=== PATIENT | female | born 1940 | race Caucasian/White ===

== ENCOUNTER 2021-03-05 08:23 | Observation (INO) | payer BC ==
[2021-03-05 08:41] VITALS: BMI 28.3
[2021-03-05] MEDS ORDERED: ACETAMINOPHEN 500 MG TABLET (FP) PO ONE (09:30)
[2021-03-05] MEDS ORDERED: ACETAMINOPHEN 325 MG TABLET (FP) ONE (09:53)
[2021-03-05 10:26] LABS: BASO % 1.9 % (0-2.0); EOS % 0.9 % (0-4.5); HEMOGLOBIN 13.1 GM/dL (10.7-15.3); LYMPH % 13.5 % (8-40); MCH 32.2 pg (25.7-33.7); MCHC 35.5 g/dl (32.0-36.0); MEAN CELL VOLUME 90.7 fl (80-96); MONO % 6.3 % (3.8-10.2); NEUT % 77.4 % (42.8-82.8); PLATELET COUNT 188 10^3/uL (134-434); RBC 4.07 M/mm3 (3.60-5.2); RDW 12.9 % (11.6-15.6); WHITE BLOOD COUNT 6.1 K/mm3 (4.0-10.0)
[2021-03-05 10:45] LABS: CHLORIDE 103 mmol/L (98-107); SODIUM 142 mmol/L (136-145)
[2021-03-05 10:48] LABS: ALBUMIN 4.3 g/dl (3.4-5.0); ANION GAP 6 MMOL/L (8-16); BLOOD UREA NITROGEN 18.8 mg/dL (7-18); CALCIUM 9.4 mg/dL (8.5-10.1); CO2 32 mmol/L (21-32); GLUCOSE,RANDOM 103 mg/dL (74-106); MAGNESIUM 2.3 mg/dL (1.8-2.4)
[2021-03-05 10:50] LABS: PHOSPHOROUS 3.1 mg/dL (2.5-4.9); SGOT/AST 19 U/L (15-37); SGPT/ALT 25 U/L (13-61)
[2021-03-05 10:52] LABS: CREATININE 0.9 mg/dL (0.55-1.3)
[2021-03-05 10:53] LABS: BILIRUBIN,TOTAL 0.9 mg/dL (0.2-1); TOT PROT 7.1 g/dl (6.4-8.2)
[2021-03-05 10:54] LABS: ALK PHOS 87 U/L (45-117)
[2021-03-05 13:47] LABS: EPI CELLS 26 /uL (0-25.1); HYALINE CASTS 5 /uL (0-3.1); PH,URINE 6.5 (5.0-8.0); URINE APPEARANCE CLEAR; URINE BACTERIA 72 /uL (0-1359); URINE BILIRUBIN NEGATIVE (NEGATIVE); URINE COLOR YELLOW; URINE GLUCOSE (UA) NEGATIVE (NEGATIVE); URINE KETONE NEGATIVE (NEGATIVE); URINE LEUK ESTERASE 1+ (NEGATIVE); URINE NITRITE NEGATIVE (NEGATIVE); URINE PROTEIN NEGATIVE (NEGATIVE); URINE RBC 15 /uL (0-23.9); URINE WBC 26 /uL (0-25.8)
[2021-03-06 08:36] LABS: CALCIUM 8.6 mg/dL (8.5-10.1)
[2021-03-06 08:37] LABS: BLOOD UREA NITROGEN 24.9 mg/dL (7-18)
[2021-03-06 08:39] LABS: CREATININE 0.9 mg/dL (0.55-1.3)
[2021-03-06] MEDS: VALSARTAN 80 MG TABLET PO SCH (09:12)
[2021-03-06] MEDS: HYDROCHLOROTHIAZIDE 12.5 MG CAPSULE (FP) PO SCH (09:12)
[2021-03-06] MEDS: SERTRALINE HCL 50 MG TABLET (FP) PO SCH (09:12)
[2021-03-06] MEDS ORDERED: PATIENT'S OWN MEDICATION (NON-FORMULARY) (Valsartan/Hydrochlorothiazide 1 TAB Tablet) PO SCH (10:00)
[2021-03-06] MEDS: HEPARIN NA (PORCINE) 5,000 UNITS/ML 1ML VIAL SQ SCH (23:27)
[2021-03-07] MEDS ORDERED: LEVOTHYROXINE NA 50 MCG TABLET (FP) PO SCH (07:00)
[2021-03-07] MEDS: HYDROCHLOROTHIAZIDE 12.5 MG CAPSULE (FP) PO SCH (09:33)
[2021-03-07] MEDS: HEPARIN NA (PORCINE) 5,000 UNITS/ML 1ML VIAL SQ SCH (09:33)
[2021-03-07] MEDS: VALSARTAN 80 MG TABLET PO SCH (09:33)
[2021-03-07] MEDS: SERTRALINE HCL 50 MG TABLET (FP) PO SCH (09:33)
[2021-03-07] MEDS ORDERED: ONDANSETRON *ODT* 4 MG TABLET SL PRN (13:43)
[2021-03-07 14:50] VITALS: BP 130/60; PULSE 76; TEMP 97.8
== END 2021-03-07 15:20 | disposition home or self-care (01) ==
LOC: JER 08:23 → JERBED 12:50 → J4W 18:59
PROVIDERS: ADMIT Internal Medicine; ATTEND Internal Medicine
DX: G25.0 Essential tremor (principal); R51.9 Headache, unspecified; E07.9 Disorder of thyroid, unspecified; E78.00 Pure hypercholesterolemia, unspecified; I10 Essential (primary) hypertension; R55 Syncope and collapse; Z29.9 Encounter for prophylactic measures, unspecified; Z87.891 Personal history of nicotine dependence; R20.2 Paresthesia of skin; R20.8 Other disturbances of skin sensation
CPT/HCPCS: 36415; 70450-TC; 70551-TC; 71046-TC-FY; 80048; 80053; 81003; 82550; 83735; 84100; 84439; 84443; 84484; 85025; 85651; 87086; 93005; 93010; 96372; 99285-25; C9803; G0378; J1644; U0003; U0005